=== PATIENT | female | born 1960 | race African-American/Black ===

== ENCOUNTER 2022-11-16 10:39 | Emergency (ER) | payer OTHER, SELFPAY ==
--- NOTE | ~2022-11-16 | XR_ITS ---
EXAMINATION: XR HAND/WRIST, LEFT CLINICAL INFORMATION: Tenderness of first metacarpal. Patient states fall onto left hand/wrist. COMPARISON: None available. TECHNIQUE: PA, lateral, and oblique views of the left wrist and PA, lateral, and oblique views of the left hand FINDINGS: LEFT WRIST/HAND: 3 mm negative ulnar variance is seen. The bones and soft tissues are otherwise normal. No fracture. Alignment is anatomic. Joint spaces are maintained. No erosions or soft tissue calcifications. XR/XR hand wrist LT IMPRESSION: 1. No acute fracture or dislocation. 2. Mild 3 mm negative ulnar variance is seen.
[2022-11-16 10:48] VITALS: BP 112/72; PULSE 72; RESP 16; TEMP 36.5; O2SAT 97; BMI 41.0
--- NOTE | 2022-11-16 10:52 | ED.GENADULT ---
HPI - General Adult General Chief complaint: Extremity Injury, Upper Stated complaint: fall l wrist inj Time Seen by Provider: 11/16/22 13:28 Source: patient Mode of arrival: ambulatory Limitations: no limitations History of Present Illness HPI narrative: 62-year-old [id number] female presents to the ER for evaluation of left wrist and hand pain after she tripped and fell a couple of days ago. She said she fell on outstretched hand and had immediate pain in her wrist at and at the base of her thumb. She waited a few days to see it would get better but it got worse. She reports pain with any movement of the thumb at all. She cannot make a fist. She states the pain shoots from the base of the thumb up the wrist and into the distal forearm. MD complaint: Left wrist and hand pain after a fall Onset (ago): day(s) (3) Location: left and upper extremity Related Data Previous Rx's Medication Instructions Recorded oxycodone 5 mg tablet 5 mg PO Q8H PRN severe pain (scale 11/16/22 score 7-10) #7 tabs Allergies Allergy/AdvReac Type Severity Reaction Status Date / Time No Known Allergies Allergy Mild NO KNOWN Unverified 11/13/19 17:10 ALLERGIES Review of Systems Review of Systems: Yes all other systems are reviewed and are negative [facility] Social History Social History Alcohol intake: never Smoked in Last 30 Days: No Use of substances other than those prescribed or required for medical reasons: No Advance Directives: No Advance Directives Information Provided: Yes Physical Exam ED Vital Signs: Vital Signs - 24 hr 11/16/22 10:48 11/16/22 13:52 11/16/22 15:15 Temperature 97.7 F 98.6 F Pulse Rate 72 67 66 Respiratory Rate 16 18 17 Blood Pressure 112/72 105/72 119/72 Pulse Oximetry 97 100 97 Oxygen Delivery Method Room Air Room Air BMI result Body Mass Index 41.0 Appearance: Alert. Oriented X3. No acute distress. HEENT: normal inspection CVS: Normal heart rate and rhythm. Pulses normal. Respiratory: No respiratory distress. Skin: Skin warm and dry. Normal skin color. Normal skin turgor. No rashes. Extremities: Left hand with some held in flexion. Unable to abduct thumb to other digits. Significant the limited range of motion of the thumb and wrist due to pain. Positive snuffbox tenderness. No significant swelling, bruising or deformity. 2+ radial pulse, cap refill less than 3 seconds in the thumb. Tenderness of the MCP. Neuro: Oriented X 3. Course Course Course Narrative: This is a rapid medical exam: Additional HPI, ROS, PE not included below will be deferred to primary provider. Patient is a 62-year-old right-hand dominant female presenting to the emergency department with complaint of left wrist and hand pain after an accidental trip and fell several days ago. Took ibuprofen and Tylenol without relief. Increased pain with movement of thumb. Tender to distal radius and first metacarpal. Plan: x-rays Medications Administered Discontinued Medications Generic Name Dose Route Start Last Admin Trade Name Freq PRN Reason Stop Dose Admin Oxycodone HCl 5 mg 11/16/22 13:55 11/16/22 14:02 Oxycodone Hcl Immed Release 5 Mg Tablet PO 11/16/22 13:56 5 mg ONCE ONE Administration Procedures Orthopedic Splinting/Casting Injury #1: Side: left Upper Extremity Injury Location: wrist and hand Upper Extremity Immobilizer: thumb spica Medical Decision Making Medical Decision Making MDM Narrative: 62-year-old female presents to the ER for evaluation of left wrist and thumb pain after falling on an outstretched hand a few days ago. Pain has been getting worse. She has significant tenderness and limited range of motion examination. Her x-ray was reviewed no acute fractures were appreciated. Given her physical exam findings will empirically splint her and have her follow-up with orthopedics for further evaluation and treatment. Will prescribe pain control. Counseled on importance of follow-up. Patient expressed understanding and stable for discharge home Differential Diagnosis Differential Diagnoses: The differential diagnosis associated with the presentation includes wrist sprain, wrist fracture, scaphoid fracture, ligamentous injury of the thumb, thumb sprain, thumb fracture Independent Interpretation I performed an independent interpretation of an: Plain X-Ray Interpretation: no appreciated fracture or dislocation, agree w/ radiology read Radiology Impression Discussion of test interpretation with radiology: I have reviewed the radiologist's reading. Radiologist Impression: XR HAND/WRIST, LEFT CLINICAL INFORMATION: Tenderness of first metacarpal. Patient states fall onto left hand/wrist. COMPARISON: None available. TECHNIQUE: PA, lateral, and oblique views of the left wrist and PA, lateral, and oblique views of the left hand FINDINGS: LEFT WRIST/HAND: 3 mm negative ulnar variance is seen. The bones and soft tissues are otherwise normal. No fracture. Alignment is anatomic. Joint spaces are maintained. No erosions or soft tissue calcifications. XR/XR hand wrist LT IMPRESSION: 1. No acute fracture or dislocation. 2. Mild 3 mm negative ulnar variance is seen. Prescription Management I considered prescription management with: Pain Medication Critical Care Time Critical Care Time Critical Care Time: No Discharge Plan Discharge Clinical Impression: Sprain and strain of wrist Patient Disposition: Home, Self-Care Instructions: Wrist Sprain (ED) Additional Instructions: Your x-ray today was normal. Given your tenderness and limited range of motion a splint was applied. Wear this splint until you are evaluated by Orthopedics - call for an appointment. Rest your hand/wrist and elevate it when possible. Use ice several times per day for the next 48 hours. Take Motrin and/or Tylenol as needed for pain. Take the prescribed oxycodone for severe pain only, do not drive after taking this medication. Follow up with your doctor as needed. Prescriptions: New oxycodone 5 mg tablet 5 mg PO Q8H PRN (Reason: severe pain (scale score 7-10)) Qty: 7 0RF Rx Instructions: Partial Fill upon patient request. Referrals: [facility] [Provider Group] Medina Dow MD [Primary Care Provider] -
[2022-11-16 13:52] VITALS: BP 105/72; PULSE 67; RESP 18; TEMP 37; O2SAT 100
[2022-11-16] MEDS: oxyCODONE HCl Immed Release 5 MG TABLET PO (14:02)
[2022-11-16 15:15] VITALS: BP 119/72; PULSE 66; RESP 17; O2SAT 97
== END 2022-11-16 15:34 | disposition home or self-care (01) ==
PROVIDERS: Emergency Provider Emergency Medicine; PCP Internal Medicine
DX: S63.502A Unspecified sprain of left wrist, initial encounter (principal); S66.912A Strain of unspecified muscle, fascia and tendon at wrist and hand level, left hand, initial encounter; W01.0XXA Fall on same level from slipping, tripping and stumbling without subsequent striking against object, initial encounter; Y93.9 Activity, unspecified; Y92.9 Unspecified place or not applicable; Y99.9 Unspecified external cause status
CPT/HCPCS: 29125; 73110; 73130; 99283; 99284

== ENCOUNTER 2022-11-24 11:11 | Outpatient (REF) | payer OTHER, SELFPAY ==
--- NOTE | ~2022-11-24 | XR_ITS ---
EXAMINATION: XR WRIST, LEFT CLINICAL INFORMATION: Pain. COMPARISON: None available. TECHNIQUE: PA, lateral, and oblique views of the left wrist are submitted, together with a dedicated navicular view. FINDINGS: The bones and soft tissues are normal. No fracture. Alignment is anatomic with normal joint spaces. There is an ulnar minus variance. No erosions or abnormal soft tissue calcifications. XR/XR wrist LT w scaphoid IMPRESSION: Normal left wrist.
== END 2022-11-24 11:12 | disposition home or self-care (01) ==
LOC: HO.HOSX 11:11
PROVIDERS: PCP Internal Medicine; Visit Provider Orthopaedic Surgery
DX: M65.4 Radial styloid tenosynovitis [de Quervain] (principal)
CPT/HCPCS: 73110

== ENCOUNTER 2022-11-24 11:11 | Outpatient (AMB) | payer OTHER, SELFPAY ==
--- NOTE | 2022-11-24 11:45 | A.OFFVIS_ITS ---
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 She states she had a fall and broke her fall with her wrist around 2 weeks. X rays were done in the [facility] and they stated there was no break. She has been using ice at times and some motrin but these did not help. 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 She was seen at the [facility] ED and told that she did not have a fracture. She was splinted and referred to us for our evaluation and care. Her chief complaint is of left radial sided wrist pain particularly bad with thumb range of motion. She denies numbness and tingling. She denies any elbow pain. [facility] Social History Alcohol intake: never Physical Exam Const General: cooperative, healthy appearing and no acute distress Orientation/consciousness: oriented to person and oriented to place HEENT Head: Yes normocephalic and Yes atraumatic Eyes EOM: EOMs intact bilaterally Resp Effort & Inspection: normal respiratory effort and able to speak in complete sentences Cardio Jugular venous distension: no JVD Skin General skin exam: turgor normal Rashes: no rashes Neuro General: oriented to person and oriented to place Extrem Other: Evaluation of left Upper Extremity: Neuro: Median, ulnar, radial nerves motor and sensory grossly intact. Vascular: Cap refill brisk. ROM: Can bring fingers closed to a fist and back out to extension. She can make a tight fist, not using her thumb, with good strength and no pain.. Can oppose thumb to all fingertips, with some episodes of discomfort with motion. Wrist flexion and extension not particularly painful. Skin: No lacerations or abrasions. General: No eccymosis. No erythema or evidence of infection. Most tender to palpation over the left 1st dorsal compartment tendons as they pass over the radial styloid and then over the wrist. We can not even try a Young test because of pain with even early ulnar deviation over the 1st dorsal compartment tendons. Week active thumb extension limited by pain. She is able to elevate her thumb off of the table with a table top test. Thus EPL is intact. Active IP range of motion No tenderness over the dorsal aspect of the distal radius DRUJ or distal ulna. DRUJ is stable. No tenderness over the dorsal aspect of the radiocarpal and ulnocarpal joints. No tenderness over the 2nd through 5th metacarpals or fingers. No scaphoid tubercle tenderness Mild snuffbox tenderness, though more so tender over the 1st dorsal compartment tendons near by. Radiographs: Three views of the left wrist plus scaphoid views were obtained today and reviewed by me in clinic: There were no fractures or dislocations. Specifically I do not see evidence of a scaphoid fracture at this time. Psych Appearance: grossly normal Affect: normal affect Attitude: cooperative Assessment & Plan Assessment & Plan (1) De Quervain's tenosynovitis, left: Code(s): M65.4 - Radial styloid tenosynovitis [de Quervain] Plan Assessment and plan: 1. Left radial wrist pain status post fall Date of injury: Approximately 11/09/2022 No evidence of fracture on repeat radiographs. Symptoms most consistent with an acute de Quervain picture EPL intact Significant pain with active extension of the thumb that can come on suddenly with activity. I educated her about this condition We are discontinuing her stiff splint and placing her in a neoprene thumb spica splint to wear with daytime activities. I have encouraged her to work on active wrist flexion extension and prono- supination and showed her that she can do this without discomfort. She also can work on finger flexion and extension and gentle range of motion of the thumb. She will be seen with 1 of our PAs in 3-4 weeks to see how she is doing. I am hoping that this will settle down, but it is possible that at some point she might need a steroid injection. At that follow-up it is important assess and make sure that the APL and EPB tendons are intact. I would say at that point it is still little early for a steroid injection, and if she is having trouble we might start with some OT to work on tendon gliding range of motion exercises. I probably wait until at least 8-12 weeks post injury before considering a possible steroid injection. Orders: Orders XR wrist LT w scaphoid Today M25.532 - Pain in left wrist Coding Level of Care Code New Pt Level 4 (68444) Diagnoses De Quervain's tenosynovitis, left M65.4
== END 2022-11-24 13:22 | disposition home or self-care (01) ==
PROVIDERS: PCP Internal Medicine; Visit Provider Orthopaedic Surgery
DX: M65.4 Radial styloid tenosynovitis [de Quervain] (principal)
CPT/HCPCS: 99203

== ENCOUNTER 2022-12-20 11:28 | Outpatient (AMB) | payer OTHER, SELFPAY ==
--- NOTE | 2022-12-20 11:34 | A.OFFVIS_ITS ---
Intake Vital Signs 12/20/22 11:37 Height 5 ft 8 in Weight 270 lb BMI 41.0 Intake Visit Reasons: OV-left wrist sprain-w/Xrays Intake Note: Alis is a 62 year old female who presents today for a follow up of her left wrist. Patient reports that she is doing Terrible she is hacing pain all the time that is worsened with any activity. Denies numbness and tingling. Allergies No Known Allergies Allergy (Mild, Unverified 11/24/22 11:49) NO KNOWN ALLERGIES HPI OV-left wrist sprain-w/Xrays HPI Details 62-year-old female who returns [facility] for a follow-up of left wrist injury. She states she has constant chronic pain in her wrist which radiates to her thumb. Her pain is aggravated with any activity. She denies any numbness or tingling. She finds relief with heat treatment. PFSH Social History Alcohol intake: never Review of Systems Const All systems reviewed & are unremarkable except as noted in HPI and below Physical Exam Vital Signs: BMI result Body Mass Index 41.0 Extrem Other: Left wrist: Without deformity. No swelling. Mild tenderness over the radial styloid. Positive Young?s. No pain with CMC grind. is able to make a full fist and fully extend all digits. NVI. Results Reviewed Results Reviewed: Xrays were obtained in the office today and personally reviewed by me serjiot he left wrist are negative for acute fracture Assessment & Plan Assessment & Plan (1) De Quervain's tenosynovitis, left: Code(s): M65.4 - Radial styloid tenosynovitis [de Quervain] Plan We discussed options which include PT, NSAIDs and injections. The patient will defer on the injection today and proceed with PT and NSAIDs. She was given a thumb spica wrist splint to wear with any type of lifting and sleeping. She will see me back in 3 weeks for reevaluation. If symptoms persist, we can discuss a steroid injection which she is content with. Orders: Orders XR wrist LT min 3V Today M25.532 - Pain in left wrist OT Evaluation and Treatment Today M65.4 - Radial styloid tenosynovitis [de Quervain] Medications: New celecoxib (Celebrex) 200 mg PO BID 60 caps 3RF 30 days Patient Instructions: Scribed for Ta-Mary Razo, PA-C, by Lenin Lindsey, vp medical, on 12/20/2022 at 11:30 AM KENDRA. Bree Sue PA-C, have personally reviewed and agree with the information entered by the scribe. Coding Level of Care Code Est Pt Level 3 (74159) Diagnoses De Quervain's tenosynovitis, left M65.4
[2022-12-20 11:37] VITALS: BMI 41.0
== END 2022-12-20 12:47 | disposition home or self-care (01) ==
PROVIDERS: PCP Internal Medicine; Visit Provider Physician Assistant
DX: M65.4 Radial styloid tenosynovitis [de Quervain] (principal)
CPT/HCPCS: 99214

== ENCOUNTER 2022-12-20 11:28 | Outpatient (REF) | payer OTHER, SELFPAY ==
--- NOTE | ~2022-12-20 | XR_ITS ---
EXAMINATION: XR WRIST, LEFT CLINICAL INFORMATION: Pain. COMPARISON: Prior radiographs, most recently 11/24/2022. TECHNIQUE: PA, lateral, and oblique views of the left wrist. FINDINGS: Bony alignment and mineralization are normal. There is an ulnar minus variance. The proximal and distal carpal rows are intact. No fracture or dislocation is seen. There is no abnormal bone erosion. No focal soft tissue swelling, gas or foreign body is seen. XR/XR wrist LT min 3V IMPRESSION: Unremarkable left wrist.
== END 2022-12-20 11:29 | disposition home or self-care (01) ==
LOC: HO.HOSX 11:28
PROVIDERS: PCP Internal Medicine; Visit Provider Physician Assistant
DX: M25.532 Pain in left wrist (principal)
CPT/HCPCS: 73110